=== PATIENT | male | born 1985 | race Asian ===

== ENCOUNTER 2016-11-08 19:07 | Emergency (ER) | payer BC ==
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
[2016-11-08] MEDS ORDERED: ONDANSETRON 4 MG/2 ML VIAL IVP ONE (19:25)
[2016-11-08] MEDS ORDERED: Sodium Chloride 0.9% 1,000 ML PRIMARY IV ONE (19:25)
[2016-11-08] MEDS ORDERED: KETOROLAC 15 MG/1 ML VIAL IVP ONE (19:25)
[2016-11-08] MEDS ORDERED: KETOROLAC 15 MG/1 ML VIAL ONE (19:29)
[2016-11-08] MEDS ORDERED: ONDANSETRON 4 MG/2 ML VIAL ONE (19:29)
[2016-11-08 19:31] LABS: RED BLOOD COUNT 4.73 10^6/uL (4.70-6.10)
[2016-11-08 19:32] LABS: BASOPHILS # (AUTO) 0.07 10*3/UL; EOSINOPHILS # (AUTO) 0.11 10*3/UL; EOSINOPHILS % (AUTO) 1.5 % (0-8); HEMATOCRIT 41.9 % (42.0-52.0); HEMOGLOBIN 14.7 g/dL (14.0-18.0); LYMPHOCYTES # (AUTO) 2.38 10*3/uL; MEAN CORPUSCULAR HEMOGLOBIN 31.1 PG (27-31); MEAN CORPUSCULAR HGB CONC 35.1 g/dL (33-37); MEAN CORPUSCULAR VOLUME 88.6 FL (80-90); MEAN PLATELET VOLUME 10.4 FL (7.4-12.2); MONOCYTES # (AUTO) 0.57 10*3/UL (0.3-0.8); NEUTROPHILS # (AUTO) 4.02 10*3/UL; NEUTROPHILS % (AUTO) 56.2 % (50-80); PLATELET MORPHOLOGY COMMENT NORMAL MORPHOLOGY (NORM); RBC MORPHOLOGY COMMENT NORMAL MORPHOLOGY (NORM); WBC MORPHOLOGY COMMENT NORMAL MORPHOLOGY (NORM)
[2016-11-08 19:39] LABS: BLOOD UREA NITROGEN 18 mg/dL (7-22); CALCIUM 8.8 mg/dL (8.7-10.7); EST GLOMERULAR FILTRATION > 60 (>60 ml/min/1.73m(2)); MAGNESIUM 1.8 mg/dL (1.6-2.4)
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
[2016-11-08] MEDS ORDERED: HYDROcodone-APAP 5 MG -325 MG TABLET PO SCH (22:45)
[2016-11-08] MEDS ORDERED: CYCLOBENZAPRINE 10 MG TABLET PO SCH (23:00)
[2016-11-09 01:12] VITALS: RESP 20; TEMP 97
== END 2016-11-08 22:58 | disposition home or self-care (01) ==
LOC: ER 19:07
DX: S40.012A Contusion of left shoulder, initial encounter (principal); S80.02XA Contusion of left knee, initial encounter; V48.5XXA Car driver injured in noncollision transport accident in traffic accident, initial encounter; Y92.411 Interstate highway as the place of occurrence of the external cause
CPT/HCPCS: 36415; 71260; 72052; 73030; 73590; 80053; 83735; 85025; 85610; 96361; 96374; 96375; 99283 ×2; J2405; J1885; J7030